=== PATIENT | male | born 1935 | race Caucasian/White ===

== ENCOUNTER 2016-09-27 20:18 | Emergency (ER) | payer OTHER ==
[~2016-09-27] VITALS: Ht 180.3 cm; Wt 112.9 kg
[~2016-09-27 20:18] MED LIST: ASPIRIN EC325 MG PO; AZOPT 1% O200 DROP/1 BOTH EYES; DOCUSATE SODIU100 MG PO; GLUCOTEN CAPLE1 EACH PO; HYDROCODON-ACE1 EAC7 PO; MULTIPLE VITAM1 EACH PO; TERAZOSIN HCL10 MG PO
[2016-09-27 21:12] LABS: MCHC 33.6 G/DL (30.0-36.0); MCV 89.2 FL (86-99); MEAN PLAT.VOLUME 9.7 uM^3 (9.0-12.4); PLATELET COUNT 215 K/uL (156-360); RBC DIS.WIDTH-CV 12.5 % (11.8-14.6); RBC DIS.WIDTH-SD 41.1 % (39-53); RED BLOOD COUNT 4.93 M/uL (4.00-5.50); WHITE BLOOD COUNT 6.9 K/uL (4.1-10.2)
[2016-09-27 21:24] LABS: INTER. NORMALIZED RATIO 1.1; PROTHROMBIN TIME 11.2 (9.2-11.2); PTT 28.9 (25-32)
[2016-09-27 21:25] LABS: CHLORIDE 106 mEq/L (99-109); SODIUM 140 mEq/L (136-147)
[2016-09-27 21:27] LABS: GLUCOSE 90 mg/dL (70-99)
[2016-09-27 21:28] LABS: ANION GAP 11 MEQ/L (2-14)
[2016-09-27 21:29] LABS: TOTAL BILIRUBIN 0.6 mg/dL (0.0-1.0)
[2016-09-27 21:31] LABS: ALKALINE PHOSPHATASE 56 IU/L (3-129); GFR ESTIMATE (CALCULATED) > 59 mL/min/
[2016-09-27 21:32] LABS: UREA NITROGEN (BUN) 17 mg/dL (9-23)
[2016-09-27] MEDS ORDERED: DOXYCYCLINE HY100 MG PO (22:33)
[2016-09-27 23:02] VITALS: BP 158/78
== END 2016-09-27 23:03 | disposition home or self-care (01) ==
LOC: EME 20:18
PROVIDERS: Emergency Medicine
DX: L03.116 Cellulitis of left lower limb (principal); Z87.891 Personal history of nicotine dependence; R60.0 Localized edema
CPT/HCPCS: 80053; 85027; 85610; 85730; 93971; 99281; 99284